=== PATIENT | male | born 1985 | race Caucasian/White ===

== ENCOUNTER 2020-12-22 21:59 | Emergency (ER) | payer OTHER ==
[2020-12-22 22:15] VITALS: BP 133/88; PULSE 77; TEMP 98.9; BMI 24.6
== END 2020-12-23 00:04 | disposition home or self-care (01) ==
LOC: JER 21:59
DX: N47.7 Other inflammatory diseases of prepuce (principal); N49.2 Inflammatory disorders of scrotum
CPT/HCPCS: 76870-TC; 99283-25